=== PATIENT | female | born 1970 | race Caucasian/White ===

== ENCOUNTER 2023-07-01 07:56 | Day surgery (SDC) | payer BC ==
[~2023-07-01] VITALS: Ht 182.9 cm; Wt 96.2 kg
[~2023-07-01 07:56] MED LIST: ACET-1080 PO; FAMO20TA10 PO; FERR1TAB31 PO; IBUP-1454 PO
[2023-07-01] MEDS ORDERED: LIDOCAINE 1% HCL (LOCAL ANESTH.) INJ 20ML MDV ONE (08:14)
[2023-07-01] MEDS ORDERED: ceFAZolin 1GM/50ML 100 ML IV ONE (08:19)
[2023-07-01] MEDS ORDERED: fentaNYL CITRATE 100 MCG/2 ML VL ONE (08:34)
[2023-07-01] MEDS ORDERED: ROPIVACAINE 0.5% (5MG/ML) 20ML AMPULE IJ ONE (09:29)
[2023-07-01] MEDS ORDERED: MEPERIDINE HCL (50 MG/ML) 1 ML VIAL ONE (10:49)
[2023-07-01] MEDS ORDERED: ONDANSETRON HCL 4 MG/2 ML VIAL ONE (10:53)
[2023-07-01] MEDS ORDERED: ePHEDrine SULFATE 50 MG/ML AMP ONE (10:54)
[2023-07-01] MEDS ORDERED: PROPOFOL 10 MG/ML 20 ML IV ONE (10:54)
[2023-07-01 11:42] VITALS: RESP 14; TEMP 97.4; O2SAT 94
[2023-07-01] MEDS ORDERED: ONDANSETRON HCL 4 MG/2 ML VIAL IV PRN (12:00)
[2023-07-01] MEDS ORDERED: MEPERIDINE HCL (25 MG/ML) 1ML VIAL IV PRN ×2 (12:00)
[2023-07-01] MEDS ORDERED: KETOROLAC TROMETH 30 MG/ML 1ML VIAL IV ONE (12:00)
[2023-07-01] MEDS ORDERED: HYDROmorphone HCL 2 MG/ML VL/or syr IV PRN (12:00)
[2023-07-01 12:53] VITALS: BP 101/81; PULSE 71; RESP 11; O2SAT 97
== END 2023-07-01 13:16 | disposition home or self-care (01) ==
LOC: SUR 07:56
PROVIDERS: ATTEND Orthopaedic Surgery Adult Reconstructive Orthopaedic Surgery
DX: S52.571A Other intraarticular fracture of lower end of right radius, initial encounter for closed fracture (principal); K21.9 Gastro-esophageal reflux disease without esophagitis; F17.210 Nicotine dependence, cigarettes, uncomplicated; W19.XXXA Unspecified fall, initial encounter; Y93.89 Activity, other specified; Y92.89 Other specified places as the place of occurrence of the external cause; Y99.8 Other external cause status; Z79.1 Long term (current) use of non-steroidal anti-inflammatories (NSAID); Z88.1 Allergy status to other antibiotic agents; Z91.048 Other nonmedicinal substance allergy status; Z98.890 Other specified postprocedural states; Z90.710 Acquired absence of both cervix and uterus
CPT/HCPCS: 25609; 73100; 76000; C1713; C1769; J0690; J1885; J2001; J2175; J2405; J2704; J2795; J3010; A4565